=== PATIENT | female | born 1955 | race Two or more races ===

== ENCOUNTER 2019-11-10 14:40 | Emergency (ER) | payer OTHER ==
[~2019-11-10] VITALS: Ht 162.6 cm; Wt 49.9 kg
== END 2019-11-10 16:34 | disposition home or self-care (01) ==
LOC: ER 14:40
DX: S30.0XXA Contusion of lower back and pelvis, initial encounter (principal); S10.83XA Contusion of other specified part of neck, initial encounter; W18.39XA Other fall on same level, initial encounter; Y93.89 Activity, other specified; Y92.59 Other trade areas as the place of occurrence of the external cause; Y99.8 Other external cause status

== ENCOUNTER 2020-03-21 08:11 | Emergency (ER) | payer OTHER ==
[~2020-03-21] VITALS: Ht 167.6 cm; Wt 52.6 kg
== END 2020-03-21 10:04 | disposition home or self-care (01) ==
LOC: ER 08:11
DX: G43.909 Migraine, unspecified, not intractable, without status migrainosus (principal)

== ENCOUNTER 2022-02-25 07:22 | Emergency (ER) | payer OTHER ==
[~2022-02-25] VITALS: Ht 160 cm; Wt 51.7 kg
== END 2022-02-25 09:07 | disposition home or self-care (01) ==
LOC: ER 07:22
DX: T78.49XA Other allergy, initial encounter (principal); T50.995A Adverse effect of other drugs, medicaments and biological substances, initial encounter; Z88.8 Allergy status to other drugs, medicaments and biological substances; Z91.018 Allergy to other foods